=== PATIENT | female | born 1990 | race African-American/Black ===

== ENCOUNTER 2022-08-23 06:23 | Emergency (ER) | payer OTHER ==
[~2022-08-23] VITALS: Ht 180.3 cm; Wt 65.8 kg
[2022-08-23 06:35] VITALS: BP_SYST 148
[2022-08-23] MEDS ORDERED: cefTRIAXone 500 MG in LIDOCAINE 1%, 20 ML MDV 1 ML IM ONE (07:15)
[2022-08-23] MEDS ORDERED: METR-154 PO (07:21)
[2022-08-23] MEDS ORDERED: DOXY100C5 PO (07:21)
[2022-08-23 07:35] VITALS: BP_SYST 135
[2022-08-23 07:35] LABS: BILIRUBIN,URINE 2+ (NEGATIVE); BLOOD, URINE 2+ (NEGATIVE); CLARITY/URINE SL CLOUDY (CLEAR); COLOR,URINE YELLOW (YELLOW); GLUCOSE,URINE NEGATIVE (NEGATIVE); KETONES,URINE 1+ (NEGATIVE); LEUKOCYTE ESTERASE ,URINE NEGATIVE (NEGATIVE); NITRITE, URINE NEGATIVE (NEGATIVE); PROTEIN URINE TRACE (NEGATIVE); UROBILINOGEN,URINE 0.2 (0.2-1.0)
[2022-08-23 07:46] LABS: BACTERIA,URINE MODERATE /HPF (None Seen); MUCUS,URINE 1+ /LPF (None Seen)
== END 2022-08-23 07:32 | disposition home or self-care (01) ==
LOC: SED 06:23
DX: Z11.3 Encounter for screening for infections with a predominantly sexual mode of transmission (principal); N72 Inflammatory disease of cervix uteri; M54.50 Low back pain, unspecified; I10 Essential (primary) hypertension; F17.210 Nicotine dependence, cigarettes, uncomplicated; Z79.899 Other long term (current) drug therapy
CPT/HCPCS: 99283; 86592; 81000; 87086; 36415; 81025; 96372; 87491; J0696

== ENCOUNTER 2022-10-20 08:00 | Emergency (ER) | payer OTHER ==
[~2022-10-20] VITALS: Ht 182.9 cm; Wt 81.6 kg
[~2022-10-20 08:00] MED LIST: DOXY100C5 PO; METR-154 PO
[2022-10-20 08:06] VITALS: BP_SYST 138; PULSE 103; RESP 20; TEMP 98.1; O2SAT 100
[2022-10-20] MEDS ORDERED: cloNIDine HCL 0.1 MG TABLET PO ONE (08:15)
[2022-10-20] MEDS ORDERED: IBUPROFEN 800 MG TABLET PO ONE (08:15)
[2022-10-20] MEDS ORDERED: EPINEPHrine HCL 1 MG/ML VIAL IM ONE (08:15)
[2022-10-20] MEDS ORDERED: HYDROcodone/ACETAMIN 7.5-325 MG TAB PO ONE (08:15)
[2022-10-20 08:20] VITALS: BP_SYST 134; PULSE 69; RESP 16; TEMP 97.8; O2SAT 99
[2022-10-20 08:34] LABS: BASOPHILS % (AUTO) 0.4 % (0.0-2.0); EOSINOPHILS # (AUTO) 0.1 K/uL (0.0-0.4); EOSINOPHILS % (AUTO) 0.8 % (0.0-4.0); HEMATOCRIT 42.3 % (36-48); HEMOGLOBIN 13.8 g/dL (12.0-16.0); LYMPHOCYTES # (AUTO) 3.1 K/uL (1.0-5.5); LYMPHOCYTES % (AUTO) 28.4 % (20.5-51.5); MEAN CORPUSCULAR HEMOGLOBIN 31 pg (27-31); MEAN CORPUSCULAR HGB CONC 33 % (32-36); MEAN CORPUSCULAR VOLUME 94 fL (79.0-98.0); MONOCYTES # (AUTO) 0.5 K/uL (0.0-1.0); MONOCYTES % (AUTO) 4.3 % (1.7-9.3); NEUTROPHILS # (AUTO) 7.1 K/uL (1.8-7.7); NEUTROPHILS % (AUTO) 66.1 % (40.0-70.0); PLATELET COUNT (AUTO) 299 K/uL (130-430); RED CELL DISTRIBUTION WIDTH 13.9 % (9.0-15.0); WHITE BLOOD COUNT (AUTO) 10.8 K/uL (4.8-10.8)
[2022-10-20 08:48] LABS: ANION GAP 13 (5-15); CALCIUM 8.4 mg/dL (8.4-11.0); CHLORIDE 102 mmol/L (98-107); CREATININE 0.84 mg/dL (0.55-1.30); GFR AFRICAN AMERICAN 100 mL/min (>90); GLUCOSE 94 mg/dL (74-106); UREA NITROGEN, BLOOD 6 mg/dL (8-21)
[2022-10-20 08:53] LABS: INR 1.1 (0.8-1.2); PROTHROMBIN TIME 10.9 SECS (9.5-12.5)
[2022-10-20 08:54] LABS: ALANINE AMINOTRANSFERASE 20 U/L (12-78); ALBUMIN 3.6 g/dL (3.4-4.8); ASPARTATE AMINOTRANSFERASE 14 U/L (10-37); TOTAL BILIRUBIN 0.3 mg/dL (0.0-1.0)
[2022-10-20] MEDS ORDERED: CLON0.2T PO (09:44)
== END 2022-10-20 10:00 | disposition home or self-care (01) ==
LOC: SED 08:00
DX: T78.3XXA Angioneurotic edema, initial encounter (principal); R51.9 Headache, unspecified; R21 Rash and other nonspecific skin eruption; I10 Essential (primary) hypertension; Z79.899 Other long term (current) drug therapy
CPT/HCPCS: 99285; 70450; 86592; 80053; 83880; 85025; 85610; 85730; 84484; 36415; 76376; 81025; 96372; J0171

== ENCOUNTER 2023-04-17 11:44 | Emergency (ER) | payer OTHER ==
[~2023-04-17] VITALS: Ht 180.3 cm; Wt 81.2 kg
[~2023-04-17 11:44] MED LIST changes: +CLON0.2T PO
[2023-04-17 12:08] VITALS: RESP 18; O2SAT 98
[2023-04-17] MEDS ORDERED: LIDOCAINE 1% 10 MG/ML, 20 ML MDV INJ ONE (12:45)
[2023-04-17] MEDS ORDERED: cefTRIAXone 1 GM VIAL IM ONE (12:45)
[2023-04-17 13:17] LABS: CALCIUM 9.2 mg/dL (8.4-11.0); CREATININE 0.96 mg/dL (0.55-1.30); POTASSIUM 4.1 mmol/L (3.5-5.1)
[2023-04-17 13:26] LABS: BASOPHILS # (AUTO) 0.1 K/uL (0.0-0.2); BASOPHILS % (AUTO) 0.6 % (0.0-2.0); EOSINOPHILS % (AUTO) 0.3 % (0.0-4.0); HEMATOCRIT 39.8 % (36-48); HEMOGLOBIN 13.7 g/dL (12.0-16.0); LYMPHOCYTES # (AUTO) 2.2 K/uL (1.0-5.5); LYMPHOCYTES % (AUTO) 23.9 % (20.5-51.5); MEAN CORPUSCULAR HEMOGLOBIN 32 pg (27-31); MEAN CORPUSCULAR HGB CONC 34 % (32-36); MEAN CORPUSCULAR VOLUME 93 fL (79.0-98.0); MONOCYTES # (AUTO) 0.7 K/uL (0.0-1.0); MONOCYTES % (AUTO) 7.4 % (1.7-9.3); NEUTROPHILS # (AUTO) 6.1 K/uL (1.8-7.7); NEUTROPHILS % (AUTO) 67.8 % (40.0-70.0); PLATELET COUNT (AUTO) 275 K/uL (130-430); RED CELL DISTRIBUTION WIDTH 13.5 % (9.0-15.0); WHITE BLOOD COUNT (AUTO) 9.1 K/uL (4.8-10.8)
[2023-04-17 13:27] LABS: ALBUMIN 3.6 g/dL (3.4-4.8); TOTAL BILIRUBIN 0.4 mg/dL (0.0-1.0); TOTAL PROTEIN, SERUM 7.4 g/dL (6.4-8.3)
[2023-04-17] MEDS ORDERED: DOXY100C5 PO (14:20)
[2023-04-17 14:43] VITALS: RESP 18; O2SAT 98
== END 2023-04-17 14:43 | disposition home or self-care (01) ==
LOC: SED 11:44
DX: R30.0 Dysuria (principal); N89.8 Other specified noninflammatory disorders of vagina; Z20.2 Contact with and (suspected) exposure to infections with a predominantly sexual mode of transmission; I10 Essential (primary) hypertension; Z79.899 Other long term (current) drug therapy
CPT/HCPCS: 99283; 86701; 86702; 80053; 84702; 85025; 36415; 96372; J0696; J2001

== ENCOUNTER 2023-06-03 16:49 | Emergency (ER) | payer OTHER ==
[~2023-06-03] VITALS: Ht 180.3 cm; Wt 83.9 kg
[2023-06-03 16:50] VITALS: BP_SYST 131; PULSE 97; RESP 19; TEMP 97.8; O2SAT 100
== END 2023-06-03 19:35 | disposition left against medical advice (07) ==
LOC: SED 16:49
DX: R10.9 Unspecified abdominal pain (principal); Z53.21 Procedure and treatment not carried out due to patient leaving prior to being seen by health care provider
CPT/HCPCS: 99281

== ENCOUNTER 2023-11-01 21:46 | Emergency (ER) | payer MEDICAID, OTHER ==
[~2023-11-01] VITALS: Ht 180.3 cm; Wt 93.0 kg
[2023-11-01 22:15] VITALS: BP_SYST 157; PULSE 130; RESP 20; TEMP 98.7; O2SAT 100
[2023-11-01 22:51] LABS: BASOPHILS # (AUTO) 0.1 K/uL (0.0-0.2); BASOPHILS % (AUTO) 0.7 % (0.0-2.0); EOSINOPHILS # (AUTO) 0.1 K/uL (0.0-0.4); EOSINOPHILS % (AUTO) 0.6 % (0.0-4.0); HEMATOCRIT 42.9 % (36-48); LYMPHOCYTES # (AUTO) 3.8 K/uL (1.0-5.5); LYMPHOCYTES % (AUTO) 39.5 % (20.5-51.5); MEAN CORPUSCULAR HEMOGLOBIN 32 pg (27-31); MEAN CORPUSCULAR HGB CONC 35 % (32-36); MEAN CORPUSCULAR VOLUME 91 fL (79.0-98.0); MONOCYTES # (AUTO) 0.7 K/uL (0.0-1.0); MONOCYTES % (AUTO) 7.1 % (1.7-9.3); NEUTROPHILS % (AUTO) 52.1 % (40.0-70.0); PLATELET COUNT (AUTO) 277 K/uL (130-430); RED BLOOD CELL COUNT(AUTO) 4.72 MIL/uL (4.2-6.2); RED CELL DISTRIBUTION WIDTH 13.2 % (9.0-15.0); WHITE BLOOD COUNT (AUTO) 9.6 K/uL (4.8-10.8)
[2023-11-01 22:57] LABS: ANION GAP 14 (5-15); CALCIUM 9.7 mg/dL (8.4-11.0); CARBON DIOXIDE 23 mmol/L (23-29); CHLORIDE 101 mmol/L (98-107); CREATININE 1.06 mg/dL (0.55-1.30); GFR AFRICAN AMERICAN 76 mL/min (>90); GLUCOSE 102 mg/dL (74-106); POTASSIUM 3.9 mmol/L (3.5-5.1); SODIUM SERUM 138 mmol/L (136-145); UREA NITROGEN, BLOOD 7 mg/dL (8-21)
[2023-11-01 22:58] LABS: GFR NON AFRICAN-AMERICAN 63 mL/min (>90)
[2023-11-01] MEDS: LORazepam 1 MG TABLET PO ONE (23:03)
[2023-11-01 23:53] LABS: METHAMPHETAMINES SCREEN,URINE POSITIVE (NEG <=500); URINE AMPHETAMINE POSITIVE (NEG <=500)
[2023-11-01 23:54] LABS: BARBITURATE, URINE NEGATIVE (NEG <=200); BENZODIAZEPINE, URINE NEGATIVE (NEG <=150); CANNABINOID, URINE NEGATIVE (NEG <=50); COCAINE, URINE NEGATIVE (NEG <=150); OPIATE, URINE NEGATIVE (NEG <=100); PHENCYCLIDINE SCREEN,URINE NEGATIVE (NEG <=25); UR TRICYCLIC ANTIDEPRESSANTS NEGATIVE (NEG <=300); URINE METHADONE NEGATIVE (NEG <=200); URINE OXYCODONE SCREEN NEGATIVE (NEG <=100)
[2023-11-02] MEDS: hydrALAZINE HCL 20 MG/ML VIAL IVP ONE (00:19)
[2023-11-02 00:55] VITALS: BP_SYST 167; PULSE 127; RESP 22; TEMP 98.7; O2SAT 96
== END 2023-11-02 00:55 | disposition home or self-care (01) ==
LOC: SED 21:46
DX: F41.9 Anxiety disorder, unspecified (principal); F15.10 Other stimulant abuse, uncomplicated; I10 Essential (primary) hypertension; R00.0 Tachycardia, unspecified; R06.00 Dyspnea, unspecified; F17.200 Nicotine dependence, unspecified, uncomplicated; Z79.899 Other long term (current) drug therapy
CPT/HCPCS: 99284; 80307; 80048; 85025; 84484; 36415; 93005; 96374; J0360

== ENCOUNTER 2023-11-03 22:29 | Emergency (ER) | payer MEDICAID ==
[~2023-11-03] VITALS: Ht 180.3 cm; Wt 93.0 kg
[2023-11-03 23:22] VITALS: BP_SYST 128; PULSE 103; RESP 18; TEMP 98.3; O2SAT 100
[2023-11-04] MEDS ORDERED: DIPH25CA83 PO (13:34)
== END 2023-11-04 02:05 | disposition left against medical advice (07) ==
LOC: SED 22:29
DX: R06.02 Shortness of breath (principal); Z53.21 Procedure and treatment not carried out due to patient leaving prior to being seen by health care provider

== ENCOUNTER 2023-11-04 12:20 | Emergency (ER) | payer MEDICAID ==
[~2023-11-04] VITALS: Ht 180.3 cm; Wt 93.0 kg
[2023-11-04 12:33] VITALS: BP_SYST 137; PULSE 92; RESP 16; TEMP 97.8; O2SAT 97
[2023-11-04] MEDS ORDERED: DIPH25CA83 PO (13:34)
[2023-11-04 13:55] VITALS: BP_SYST 130; PULSE 89; RESP 18; TEMP 97.8; O2SAT 98
== END 2023-11-04 13:56 | disposition home or self-care (01) ==
LOC: SED 12:20
DX: F41.9 Anxiety disorder, unspecified (principal); F15.10 Other stimulant abuse, uncomplicated; R00.2 Palpitations; R06.02 Shortness of breath; R13.10 Dysphagia, unspecified; R22.0 Localized swelling, mass and lump, head; I10 Essential (primary) hypertension; Z79.899 Other long term (current) drug therapy
CPT/HCPCS: 71045; 93005; 99283